=== PATIENT | male | born 1975 | race Caucasian/White ===

== ENCOUNTER 2017-02-04 16:00 | Emergency (ER) | payer MEDICAID ==
[~2017-02-04] VITALS: Ht 172.7 cm; Wt 81.6 kg
[~2017-02-04 16:00] MED LIST: ESOM20CA PO; OMEP10CA4
--- NOTE | 2017-02-04 16:00 | NUR ---
PT C/O RIGHT CHEEK ABSCESS X 1 WEEK. NAD NOTED. PT AAO X4 , AMB WITH STEADY GAIT. RR EVEN AND UNLABORED. VSS. PENDING MD FOR EVAL.
[2017-02-04] MEDS ORDERED: IV NS 0.9% 1,000 ML ONE (16:20)
[2017-02-04] MEDS ORDERED: IV SET PRIMARY PUMP SET 1 EA INFUS.SET MC ONE (16:20)
[2017-02-04 16:25] LABS: BASOPHILS # (AUTO) 0.1 /CMM (0.0-0.2); BASOPHILS % (AUTO) 0.5 % (0.0-2.0); EOSINOPHILS # (AUTO) 0.1 /CMM (0.0-0.7); EOSINOPHILS % (AUTO) 0.8 % (0.0-6.0); HEMATOCRIT 41 % (39-51); HEMOGLOBIN 14.1 g/dL (13.5-17.5); LYMPHOCYTES # (AUTO) 3.6 /CMM (0.8-4.8); LYMPHOCYTES % (AUTO) 26.6 % (20.0-44.0); MEAN CORPUSCULAR HEMOGLOBIN 32 PG (26.0-33.0); MEAN CORPUSCULAR HGB CONC 35 g/dl (31.0-36.0); MEAN CORPUSCULAR VOLUME 92 fL (80-96); MONOCYTES # (AUTO) 0.7 /CMM (0.1-1.30); NEUTROPHILS % (AUTO) 67.1 % (43.0-81.0); PLATELET COUNT (AUTO) 302 /CMM (150-450); RDW COEFFICIENT OF VARIATION 11.8 (11.5-15.0); RED BLOOD CELL COUNT(AUTO) 4.43 MIL/uL (4.5-6.0); WHITE BLOOD COUNT (AUTO) 13.5 K/uL (4.3-11.0)
[2017-02-04] MEDS ORDERED: IV NS 0.9% 1,000 ML BAG IV ONE (16:30)
[2017-02-04 16:36] LABS: CALCIUM, SERUM 9.6 mg/dL (8.5-10.1); CREATININE 1.1 mg/dL (0.6-1.3); POTASSIUM 3.7 mmol/L (3.5-5.1)
[2017-02-04 16:40] LABS: INR 0.9 (0.87-1.13); PROTHROMBIN TIME 9.3 SECS (9.5-12.7)
[2017-02-04] MEDS ORDERED: IOHEXOL-300 100 ML VIAL IV ONE (16:42)
[2017-02-04] MEDS ORDERED: CT SWABBABLE VALVE TRANS SET 1 EA INFUS.SET MC ONE (16:42)
[2017-02-04] MEDS ORDERED: IV NS 0.9% 250 ML IV ONE (16:42)
[2017-02-04 17:02] VITALS: BP 122/89
== END 2017-02-04 17:02 | disposition home or self-care (01) ==
LOC: ER 16:03
DX: K12.2 Cellulitis and abscess of mouth (principal); I10 Essential (primary) hypertension; K21.9 Gastro-esophageal reflux disease without esophagitis; Z90.89 Acquired absence of other organs; F17.200 Nicotine dependence, unspecified, uncomplicated; J18.9 Pneumonia, unspecified organism; K52.9 Noninfective gastroenteritis and colitis, unspecified
CPT/HCPCS: 36415; 80048; 85025; 85730; 96360; 99284; A4606; J7030; J7050; Q9967; Z7610

== ENCOUNTER 2019-04-25 08:38 | Outpatient (CLI) | payer MEDICAID ==
[~2019-04-25 08:38] MED LIST changes: -OMEP10CA4; +OMEP10CA5
[2019-04-25] MEDS ORDERED: IOHEXOL-350 100 ML VIAL IV ONE (10:19)
[2019-04-25] MEDS ORDERED: IV NS 0.9% 250 ML IV ONE (10:20)
[2019-04-25] MEDS ORDERED: CT SWABBABLE VALVE TRANS SET 1 EA INFUS.SET MC ONE (10:20)
[2019-04-25] MEDS ORDERED: METOPROLOL TARTRATE INJ 5 MG/5 ML AMPUL ONE (10:23)
--- NOTE | 2019-04-25 11:07 | NUR ---
RN NOTE 1040: Patient from [facility], 44M, A/Ox4, aware for the procedure. Signed consent. 1105: Done with procedure, SP 4 doses of Metoprolol 5mg IVP and Nitro 0.4 SL x1. VSS, latest VS 138/88, NSR 80's. Report given to EMT.
[2019-04-25 11:26] VITALS: BP 138/88
[2019-04-25] MEDS: METOPROLOL TARTRATE INJ 5 MG/5 ML AMPUL IVP ONE (11:26)
[2019-04-25] MEDS: NITROGLYCERIN 0.4 MG/TAB BOTTLE SL ONE (11:26)
[2019-04-25] MEDS: IV NS 0.9% 500 ML IV ONE (11:27)
== END 2019-04-25 23:59 | disposition home or self-care (01) ==
LOC: CT 08:38
PROVIDERS: ATTEND Internal Medicine
DX: R07.9 Chest pain, unspecified (principal); M47.814 Spondylosis without myelopathy or radiculopathy, thoracic region; I10 Essential (primary) hypertension; J44.9 Chronic obstructive pulmonary disease, unspecified
CPT/HCPCS: 75574; J3490; J7050; Q9967